=== PATIENT | male | born 1985 | race Caucasian/White ===

== ENCOUNTER → 2018-08-17 | Outpatient (CLI) | payer BC ==
--- NOTE | 2018-08-17 13:25 | US ---
EXAMINATION TYPE: US soft tissue head/neck DATE OF EXAM: 08/17/2018 COMPARISON: NONE CLINICAL HISTORY: J36 Peritonsillar abscess. Palpable right upper anterior neck with diagnosis of str ep throat GLAND SIZE: Bilateral neck scanned: evidence of lymphadenopathy on right with multiple lymph nodes seen and larg est palpable node = 3.6 x 2.2 x 1.2cm with cortical thickness = 0.5cm; and left upper anterior neck n ode = 2.3 x 1.2 x 1.1cm. Ultrasound performed at the site of patient's palpable abnormality. IMPRESSION: Lymphadenopathy
== END | disposition home or self-care (01) ==
LOC: RADUSWWP 12:42
PROVIDERS: ATTEND Family Medicine
DX: R59.0 Localized enlarged lymph nodes (principal)
CPT/HCPCS: 76536